=== PATIENT | female | born 1975 | race Two or more races ===

== ENCOUNTER 2024-03-20 19:24 | Emergency (ER) | payer SELFPAY ==
[~2024-03-20] VITALS: Ht 157.5 cm; Wt 64.0 kg
[2024-03-20 19:33] VITALS: BP 110/76; PULSE 76; RESP 18; TEMP 98.2; O2SAT 96
== END 2024-03-20 22:24 | disposition left against medical advice (07) ==
LOC: ER 19:24 → EDBEDREQ 20:00 → EDBEDREQSVC 21:58 → CANBEDREQ 22:23 → ER 22:24
DX: F10.129 Alcohol abuse with intoxication, unspecified (principal); Y90.9 Presence of alcohol in blood, level not specified
CPT/HCPCS: 99283